=== PATIENT | female | born 1970 | race Two or more races ===

== ENCOUNTER 2024-10-23 12:00 | Day surgery (SDC) | payer MEDICAID, SELFPAY ==
[2024-10-22 12:12] VITALS: BMI 29.5
[2024-10-23] VITALS (10 sets, daily range): BP systolic 85–116; BP diastolic 55–75; PULSE 61–84; RESP 12–20; TEMP 36.6–36.9; O2SAT 93–98; BMI 28.5
[2024-10-23] MEDS: MIDAZOLAM INJ 1 MG/ML VIAL 2 ML (ASD USE ONLY) 2 MG IVP (13:14)
[2024-10-23] MEDS: RINGERS LACTATED 1000 ML 1,000 ML 125 ML IV (13:14)
[2024-10-23] MEDS: fentaNYL CIT INJ 50 mCg/ML AMP 2ML (ASD USE ONLY) IVP (13:14)
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
== END 2024-10-23 14:23 | disposition home or self-care (01) ==
PROVIDERS: PCP Physician Assistant; Referring Provider Surgery; Visit Provider Surgery
PROC: 0DBE8ZX Excision of Large Intestine, Via Natural or Artificial Opening Endoscopic, Diagnostic (ICD-10-PCS; CPT 45380; principal; 2024-10-23 13:00)
DX: Z12.11 Encounter for screening for malignant neoplasm of colon (principal)
CPT/HCPCS: 45378; 81025; J2250; J3010; J7120